=== PATIENT | female | born 1945 | race African-American/Black ===

== ENCOUNTER → 2016-07-07 | Outpatient (CLI) | payer MEDICARE, OTHER ==
[~2016-07-07] MED LIST: ALDACTONE25 MG PO; AMBIEN10 MG PO; CARTIA XT120 MG PO; DESYREL50 MG PO; DEXILANT60 MG PO; DOC-Q-LACE100 MG PO; DULERA 100 MCG/13 GM IH; DYAZIDE 371 CAP 37.5 PO; FERRO-TIME325 MG PO; FERROUS SULFATE PO; FLOVENT DI50 MCG/DIS IH; HYDROCODON-ACE1 EAC1 PO; HYDROCODONE-APA1 T55 PO; KCL PO; LASIX20 MG PO; LOPRESSOR PO; LOSARTAN POTASS50 MG PO; MACROBID 100 M100 MG PO; NICOTROL; PLAVIX PO; POTASSIUM CHLO10 ME1 PO; PREMARIN0.625 MG PO; PYRIDIUM100 MG PO; SIMVASTATIN80 MG PO; WARFARIN SODIUM3 MG PO; ZOCOR20 MG PO; ZOFRAN ODT4 MG PO
--- NOTE | ~2016-07-07 | MY11 ---
[facility] A Service [facility] RADIOLOGY TEXT RESULTS PATIENT: GLO LEE LOCATION: [facility] : 41 UNIT #: [id number] AGE: [address]: Julianne Snyder MD SEX: F ORDER DR: [id number] [facility] [address] [facility]. [place], [place] [address] [id number] O MR#: [id number] Acc #: [id number] NAME: GLO LEE : 1945 SEX: F STUDY DATE/TIME: 07/07/2016 11:48 UNIT: [facility] ROOM: STUDY DESCRIPTION: MY Mammogram Screening Dig Darrius Attending Physician: Julianne Snyder M.D. Ordering Physician: Julianne Snyder M.D. Primary Care Physician: Julianne Snyder M.D. MEDICAL IMAGING REPORT This report is preliminary unless electronic signature is present EXAM mammogram with CAD 07/07/2016. HISTORY 71-year-old asymptomatic female with no personal or family history of breast cancer. FINDINGS The background breast parenchyma consists of scattered fibroglandular densities. No suspicious mass, microcalcification, architectural distortion. Exam is compared to prior mammogram dated 12/27/2014. IMPRESSION Negative mammogram. RECOMMENDATIONS Annual screening mammogram. BIRADS: 1 Negative. Patients over the age of 40 are entered into a reminder system with target due date for the next mammogram. A result letter will also be sent to the patient. Dictated by... Rogelio Maza M.D. THIS IS AN ELECTRONICALLY VERIFIED REPORT Rogelio Maza M.D. at 07/07/2016 5:15 PM [facility] A Service [facility] RADIOLOGY TEXT RESULTS PATIENT: GLO LEE LOCATION: [facility] : 41 UNIT #: [id number] AGE: [address]: Julianne Snyder MD SEX: F ORDER DR: CHERISE/pablo TD: 07/07/2016 15:31 JOB #: [id number] MEDICAL IMAGING REPORT Page 1 of 1 COPY
== END | disposition home or self-care (01) ==
LOC: CWCC 11:10
DX: Z12.31 Encounter for screening mammogram for malignant neoplasm of breast (principal)
CPT/HCPCS: G0202